=== PATIENT | male | born 1995 | race Two or more races ===

== ENCOUNTER 2025-04-22 00:20 | Emergency (ER) | payer MEDICAID, SELFPAY ==
[2025-04-22 00:23] VITALS: PULSE 130; RESP 18; O2SAT 98; BMI 32.1
[2025-04-22 00:25] VITALS: BP 121/79; PULSE 134; RESP 18; TEMP 37.3; O2SAT 92
[2025-04-22 00:26] VITALS: BMI 33.5
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
--- NOTE | 2025-04-22 00:52 | PC.NURSE ---
pt denied the head ct, only wanted giovanna
[2025-04-22 01:01] VITALS: BP 141/79; RESP 18; O2SAT 96
== END 2025-04-22 01:02 | disposition home or self-care (01) ==
PROVIDERS: Emergency Provider Emergency Medicine; PCP Family Medicine
DX: S01.01XA Laceration without foreign body of scalp, initial encounter (principal); S01.81XA Laceration without foreign body of other part of head, initial encounter; Y09 Assault by unspecified means
CPT/HCPCS: 12004; 12013; 99281